=== PATIENT | male | born 1935 | race Hispanic/Latino ===

== ENCOUNTER 2019-01-19 10:54 | Emergency (ER) | payer MEDICARE ==
[2019-01-19 11:08] VITALS: RESP 18; TEMP 97; BMI 23.6
[2019-01-19] MEDS ORDERED: Lidocaine 5% Patch TD STA (11:55)
--- NOTE | 2019-01-19 12:02 | ED PDOC ---
HPI: General Adult Time Seen by Provider: 01/19/19 11:40 Chief Complaint (Nursing): Back Pain Chief Complaint (Provider): Back Pain History Per: Patient History/Exam Limitations: no limitations Onset/Duration Of Symptoms: Hrs Additional Complaint(s): 83 y/o male presents to the ED complaining of lower back pain that started yesterday. Patient states the pain started when he was getting undressed. He reports he took a Advil with no relief. Patient denies nausea, vomiting, abdominal pain, diarrhea, numbness, tingles, or any chest pain. No incontinence, constipation. Pain on moving around. Pain on ambulating. Has had back pain in the past. Has shooting pain down right leg. PMD: none provided Past Medical History Reviewed: Historical Data, Nursing Documentation, Vital Signs Vital Signs: Last Vital Signs Temp 97 F L 01/19/19 11:07 Pulse 68 01/19/19 11:07 Resp 18 01/19/19 11:07 BP 159/87 H 01/19/19 11:07 Pulse Ox 97 01/19/19 11:07 - Medical History PMH: Back Problems - Surgical History Surgical History: No Surg Hx - Family History Family History: States: Unknown Family Hx - Living Arrangements Living Arrangements: With Family - Allergies Allergies/Adverse Reactions: Allergies Allergy/AdvReac Type Severity Reaction Status Date / Time No Known Allergies Allergy Verified 01/19/19 11:54 Review of Systems ROS Statement: Except As Marked, All Systems Reviewed And Found Negative Musculoskeletal: Positive for: Back Pain (lower) Physical Exam - Reviewed Nursing Documentation Reviewed: Yes Vital Signs Reviewed: Yes - Physical Exam Appears: Positive for: Well, Non-toxic, No Acute Distress Head Exam: Positive for: ATRAUMATIC, NORMAL INSPECTION, NORMOCEPHALIC Skin: Positive for: Normal Color, Warm, Dry Eye Exam: Positive for: EOMI, Normal appearance, PERRL ENT: Positive for: Normal ENT Inspection Neck: Positive for: Normal, Painless ROM, Supple Cardiovascular/Chest: Positive for: Regular Rate, Rhythm. Negative for: Murmur Respiratory: Positive for: Normal Breath Sounds. Negative for: Wheezing Gastrointestinal/Abdominal: Positive for: Normal Exam, Soft. Negative for: Tenderness Back: Positive for: Other (right lower back mild tender; straight neg b/l) Extremity: Positive for: Normal ROM. Negative for: Tenderness Neurological/Psych: Positive for: Awake, Alert, Normal Tone, Oriented (x3), clinical data management director II-XII. Negative for: Motor/Sensory Deficits - ECG O2 Sat by Pulse Oximetry: 97 Pulse Ox Interpretation: Normal - Radiology X-Ray: Interpreted by Me, Viewed By Me X-Ray Interpretation: Fracture - Progress ED Course And Treament: 1422: Pt. with possible fx. Will ct. 1455: Dr. Alegria to take over care and fu on ct lumbar. Medical Decision Making Medical Decision Making: Time: 1155 Initial Impression: Lower back pain Initial Plan: -X-ray -Lidoderm -Toradol 15mg -Valium 5mg PO Scribe Attestation: Documented by Rosa Elena Finch, acting as a scribe for Radames Mora Provider Scribe Attestation: All medical record entries made by the Scribe were at my direction and personally dictated by me. I have reviewed the chart and agree that the record accurately reflects my personal performance of the history, physical exam, medical decision making, and the department course for this patient. I have also personally directed, reviewed, and agree with the discharge instructions and disposition. Disposition - Clinical Impression Clinical Impression: Lumbar vertebral fracture - Patient ED Disposition Is Patient to be Admitted: Transfer of Care - Disposition Disposition: Transfer of Care Disposition Time: 14:56 Condition: FAIR Patient Signed Over To: Priscilla Alegria
[2019-01-19] MEDS ORDERED: Lidocaine 5% Patch TD ONE (12:50)
--- NOTE | 2019-01-19 15:09 | RAD ---
Date of service: 01/19/2019 PROCEDURE: Radiographs of the Lumbar Spine. HISTORY: back pain COMPARISON: No prior. TECHNIQUE: 5 views obtained. FINDINGS: BONES: Loss of height L3 vertebral body age indeterminate. DISC SPACES: Multilevel degenerative change primarily non marginal osteophyte formation. OTHER FINDINGS: Calcified nonaneurysmal abdominal aorta. Constipation without fecal impaction or obstruction. IMPRESSION: Diffuse osteopenia. Mild multilevel degenerative change. Mild compression deformity L3 vertebral body etiology/acuity unknown.
--- NOTE | 2019-01-19 16:07 | ED PDOC ---
- ECG O2 Sat by Pulse Oximetry: 97 Medical Decision Making Medical Decision Making: Accession No. : [id number] Patient Name / ID : RADHA HAYES / [id number] Exam Date : 01/19/2019 14:56:39 ( Approved ) Study Comment : Sex / Age : M / 83Y Creator : Destin Dozier MD Dictator : Destin Dozier MD Utility Manager : Marine Technician : Destin Dozier MD Approver2 : Report Date : 01/19/2019 16:25:11 My Comment : Date of service: 01/19/2019 PROCEDURE: CT Lumbar Spine without contrast HISTORY: fracture eval COMPARISON: None available. TECHNIQUE: Axial computed tomography images were obtained of the lumbar spine without the use of intravenous contrast. Coronal and sagittal reformatted images were created and reviewed. Radiation dose: Total exam DLP = 387.71 mGy-cm. This CT exam was performed using one or more of the following dose reduction techniques: Automated exposure control, adjustment of the mA and/or kV according to patient size, and/or use of iterative reconstruction technique. FINDINGS: VERTEBRAE: No acute fracture appreciated. Grade 1 spondylolisthesis at L4-5 appears degenerative as there is advanced facet joint degenerative change here. No spondylolysis. There is in fact possible fusion of the right L4-5 facet joint. Large Schmorl node is seen at the central L1 vertebral body with advanced multilevel lumbar spondylosis present. No suspicious destructive bony lesion identified. Vacuum disc changes present L5-S1 with mild disc height loss present at L2-3, L3-4 and L4-5. Prevertebral paraspinal soft tissues reflect non aneurysmal aortic atherosclerosis of the visualized abdominal aorta as well as sigmoid diverticular changes. Inferior levoscoliotic lumbar spinal deformity noted. DISCS/SPINAL CANAL/NEURAL FORAMINA: L1-2: Unremarkable. L2-3: Minimal disc bulge posteriorly. No significant central stenosis. [id number] bilateral degenerative neural foraminal stenosis due to osteophytic components added to disc bulging. L3-4: Large posterior disc bulge combines with facet joint degenerative arthropathy causing moderate central canal stenosis and moderate bilateral neural foraminal stenosis as well. L4-5: Grade 1 spondylolisthesis and limited posterior disc bulging combines with gross facet joint degenerative changes in results in a severe central canal stenosis with moderate bilateral neural foraminal stenosis present. L5-S1: Posterior disc bulge inverts the ventral thecal sac minimally causing borderline central stenosis and borderline bilateral neural foraminal stenosis. PARASPINAL SOFT TISSUES: Unremarkable. OTHER FINDINGS: None. IMPRESSION: 1. No acute fracture although a degenerative grade 1 spondylolisthesis identified L4-5 on the basis of gross facet joint degenerative arthropathy. 2. Spondylolysis or other fracture throughout the exam. 3. 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 4. Multilevel neural foraminal stenoses with moderate degenerative L3-4 central canal stenosis. Borderline degenerative L5-S1 central canal stenosis. 17:00 Pt reports feeling better, able to ambulate. Disposition - Clinical Impression Clinical Impression: Low back pain - POA Present On Arrival: None - Disposition Disposition: Routine/Home Disposition Time: 17:00 Condition: STABLE Additional Instructions: FOLLOW-UP WITH PMD WITHIN 2 DAYS FOR REEVALUATION. Prescriptions: Cyclobenzaprine [Cyclobenzaprine HCl] 10 mg PO TID PRN #15 tab PRN Reason: Pain Lidocaine 5% [Lidoderm] 1 ea TD DAILY PRN #10 patch PRN Reason: Pain, Moderate (4-7) Naproxen [Naprosyn] 500 mg PO BID PRN #15 tablet PRN Reason: Pain, Moderate (4-7) Instructions: Low Back Pain in Adults Forms: [facility] (Citizen Of [place]) Addendum Addendum: 01/19/19 15:00 Pt signed out by Dr. Faith pending CT.
--- NOTE | 2019-01-19 16:28 | CT ---
Date of service: 01/19/2019 PROCEDURE: CT Lumbar Spine without contrast HISTORY: fracture eval COMPARISON: None available. TECHNIQUE: Axial computed tomography images were obtained of the lumbar spine without the use of intravenous contrast. Coronal and sagittal reformatted images were created and reviewed. Radiation dose: Total exam DLP = 387.71 mGy-cm. This CT exam was performed using one or more of the following dose reduction techniques: Automated exposure control, adjustment of the mA and/or kV according to patient size, and/or use of iterative reconstruction technique. FINDINGS: VERTEBRAE: No acute fracture appreciated. Grade 1 spondylolisthesis at L4-5 appears degenerative as there is advanced facet joint degenerative change here. No spondylolysis. There is in fact possible fusion of the right L4-5 facet joint. Large Schmorl node is seen at the central L1 vertebral body with advanced multilevel lumbar spondylosis present. No suspicious destructive bony lesion identified. Vacuum disc changes present L5-S1 with mild disc height loss present at L2-3, L3-4 and L4-5. Prevertebral paraspinal soft tissues reflect non aneurysmal aortic atherosclerosis of the visualized abdominal aorta as well as sigmoid diverticular changes. Inferior levoscoliotic lumbar spinal deformity noted. DISCS/SPINAL CANAL/NEURAL FORAMINA: L1-2: Unremarkable. L2-3: Minimal disc bulge posteriorly. No significant central stenosis. [id number] bilateral degenerative neural foraminal stenosis due to osteophytic components added to disc bulging. L3-4: Large posterior disc bulge combines with facet joint degenerative arthropathy causing moderate central canal stenosis and moderate bilateral neural foraminal stenosis as well. L4-5: Grade 1 spondylolisthesis and limited posterior disc bulging combines with gross facet joint degenerative changes in results in a severe central canal stenosis with moderate bilateral neural foraminal stenosis present. L5-S1: Posterior disc bulge inverts the ventral thecal sac minimally causing borderline central stenosis and borderline bilateral neural foraminal stenosis. PARASPINAL SOFT TISSUES: Unremarkable. OTHER FINDINGS: None. IMPRESSION: 1. No acute fracture although a degenerative grade 1 spondylolisthesis identified L4-5 on the basis of gross facet joint degenerative arthropathy. 2. Spondylolysis or other fracture throughout the exam. 3. 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 4. Multilevel neural foraminal stenoses with moderate degenerative L3-4 central canal stenosis. Borderline degenerative L5-S1 central canal stenosis.
[2019-01-19 17:43] VITALS: BP 150/80; PULSE 70; O2SAT 98
== END 2019-01-19 17:32 | disposition home or self-care (01) ==
LOC: H.ER 10:54
DX: S32.009A Unspecified fracture of unspecified lumbar vertebra, initial encounter for closed fracture (principal); M43.16 Spondylolisthesis, lumbar region; M54.5 Low back pain; M48.061 Spinal stenosis, lumbar region without neurogenic claudication
CPT/HCPCS: 72114; 72131; 96372; 99283; J1885